=== PATIENT | male | born 1960 | race Caucasian/White ===

== ENCOUNTER 2022-07-30 16:09 | Outpatient (CLI) | payer BC, SELFPAY ==
[2022-07-30 21:30] LABS: Albumin* 5.1 g/dL (3.3-5.0); Chloride* 91 mmol/L (96-114); Potassium* 3.9 mmol/L (3.6-5.1); Sodium* 133 mmol/L (135-149)
[2022-07-30 21:32] LABS: Creatinine* 1.6 mg/dL (0.5-1.5); Estimated Glomerular Filt Rate 48 ml/min
[2022-07-30 21:33] LABS: Alanine Aminotransferase* 68 U/L (4-50); Alkaline Phosphatase* 85 U/L (40-150); Aspartate Amino Transferase* 88 U/L (12-35); Bilirubin Total* 0.6 mg/dL (0.1-1.5); Blood Urea Nitrogen* 23 mg/dL (7-30); Calcium* 10.2 mg/dL (8.4-10.6); Carbon Dioxide* 29 mmol/L (20-32); Glucose* 74 mg/dL (60-115); Total Protein* 8.3 g/dL (6.0-8.3)
== END 2022-07-30 16:10 | disposition home or self-care (01) ==
PROVIDERS: Visit Provider Dermatology
DX: L40.9 Psoriasis, unspecified (principal); I10 Essential (primary) hypertension
CPT/HCPCS: 80053; 86480

== ENCOUNTER 2022-08-27 18:17 | Emergency (ER) | payer BC, SELFPAY ==
[2022-08-27] VITALS (16 sets, daily range): BP systolic 99–130; BP diastolic 79–99; PULSE 76–110; RESP 18; TEMP 36.5; O2SAT 95–100; BMI 25.5
--- NOTE | 2022-08-27 18:37 | ED_ITS ---
HPI - General Adult General Time Seen by Provider: 18:38 Date Seen: 08/27/22 Chief complaint: Dizziness/Vertigo Stated complaint: Extreme Dizziness,Fainting,BP Up & Down Time Seen by Provider: 08/27/22 18:33 Source: patient and RN notes reviewed Mode of arrival: ambulatory Limitations: no limitations History of Present Illness HPI narrative: Patient is a 61-year-old male presenting tonight after 6:00 p.m. to the ER with sense of feeling dizzy/lightheaded. He got up to go to the bathroom early in the morning, had no issues. He got up for the morning, went in and got his shaving stuff out in the bathroom, went to the bathroom and then got into a very hot shower. He started to feel lightheaded and states he went down. He did this a 2nd time the shower. He got out of the shower proceeded to go about his day and has had no further syncopal events. He is on Xarelto. He states he has a history of atrial fibrillation but his problem list shows atrial flutter. He has not had cardioversion before, states he has not seen Cardiology before. They do not think he has had an echo before. He is on Xarelto and has not missed any doses, is on metoprolol XL 100 mg daily and then Dyazide daily. He states he has no feeling of the rhythm he is in. We discussed it is difficult to say if he was in this morning or not, we do not know how long he has been in it. He admits to alcohol use. His left ankle was reportedly injured in the shower but that was it. He states he did not hit his head, is not having any headaches, no visual changes. He has no new neck pain but does endorse chronic neck pain that is at baseline. He is not feeling short of breath. He states he has been walking on the left foot and ankle without any difficulty today. No fevers, no cough or cold symptoms. Related Data Home Medications Medication Instructions Recorded Confirmed metoprolol tartrate 100 mg tablet 100 mg PO QDAY 07/30/22 08/27/22 rivaroxaban 20 mg tablet (Xarelto) 20 mg PO QDAY 07/30/22 08/27/22 triamterene 37.5 1 tab PO QDAY 07/30/22 08/27/22 mg-hydrochlorothiazide 25 mg tablet ustekinumab 90 mg/mL subcutaneous 90 mg subcut Q12W 07/30/22 08/27/22 syringe (Stelara) Previous Rx's Medication Instructions Recorded ustekinumab 90 mg/mL subcutaneous 90 mg subcut Q12W #1 mL 07/30/22 syringe (Stelara) triamcinolone acetonide 0.1 % 1 applic topical BID #80 grams 08/04/22 topical cream metoprolol tartrate 50 mg tablet 50 mg PO DAILY #30 tabs 08/27/22 Allergies Allergy/AdvReac Type Severity Reaction Status Date / Time povidone Allergy Mild Rash Verified 08/27/22 18:27 Review of Systems Status of ROS: Reports: 10 or more systems reviewed and unremarkable except as noted in History and below [facility] Medical History (Updated 08/27/22 @ 20:18 by Natalee Rivera MD) GERD (gastroesophageal reflux disease) History of atrial flutter Hypertension Psoriasis Family History (Updated 05/26/22 @ 13:21 by Gail Patino) Brother Coronary artery disease Mother Coronary artery disease Social History Smoking Status: Never smoker Do you use any of these nicotine containing products: None Second hand tobacco smoke exposure: No How often do you have a drink containing alcohol: 4 or more times a week How many standard drinks containing alcohol do you have on a typical day: 3 or 4 AUDIT-C Alcohol total score: 5 Non-prescribed substance use: denies use Exam Const: Vital Signs, click to edit/add: Vital Signs - 24 hr 08/27/22 18:28 08/27/22 18:55 08/27/22 18:28 Temperature 97.7 F Pulse Rate 102 H Pulse Rate [Right Pulse Oximeter] 110 H Respiratory Rate 18 Blood Pressure 127/99 H Blood Pressure [Ri ght Upper Arm] 127/99 H Pulse Oximetry 98 96 99 Oxygen Delivery Me thod Room Air 08/27/22 18:29 08/27/22 18:30 08/27/22 18:32 Temperature Pulse Rate 76 84 Pulse Rate [Right Pulse Oximeter] Respiratory Rate Blood Pressure 130/97 H Blood Pressure [Ri ght Upper Arm] Pulse Oximetry 98 98 99 Oxygen Delivery Me thod 08/27/22 19:00 08/27/22 19:02 08/27/22 19:03 Temperature Pulse Rate 91 Pulse Rate [Right Pulse Oximeter] Respiratory Rate Blood Pressure 100/79 Blood Pressure [Ri ght Upper Arm] Pulse Oximetry 96 98 95 Oxygen Delivery Me thod 08/27/22 19:30 08/27/22 19:32 Temperature Pulse Rate 76 90 Pulse Rate [Right Pulse Oximeter] Respiratory Rate Blood Pressure 102/81 Blood Pressure [Ri ght Upper Arm] Pulse Oximetry 98 99 Oxygen Delivery Me thod Documenting provider has reviewed patient's vital signs: yes Common normals: no apparent distress, average body habitus, oriented x3, no limitations, healthy appearing, alert and well nourished General appearance: cooperative, comfortable and well kempt HENMT: Common normals: normocephalic, head/scalp atraumatic, hearing grossly normal bilaterally, external ears normal, external nose normal, nasal mucous membranes and turbinates normal, moist oral mucous membranes, oropharynx normal, dentition normal and gingiva normal Head and scalp: normocephalic and atraumatic Nose: external nose normal and nasal mucous membranes and turbinates normal External ear: external ears normal Eye: Common normals: PERRL, EOMs intact bilaterally, conjunctivae normal and no scleral icterus Conjunctiva: conjunctiva(e) normal Pupil: PERRL Neck & C-Spine: Common normals: full ROM, no lymphadenopathy, supple, no meningeal signs, no JVD and thyroid normal Thyroid: thyroid normal Chest: Common normals: inspection of chest normal Resp: Common normals: normal respiratory effort, no retractions, no use of accessory muscles and clear to auscultation bilaterally Auscultation: clear to auscultation bilaterally Cardio: Common normals: no JVD and no murmurs Rhythm: abnormal rhythm irregularly irregular GI: Common normals: Normal to inspection, nondistended, normoactive bowel sounds present, soft to palpation, non-tender, no hepatosplenomegaly and no masses Palpation: soft and no hepatosplenomegaly Extremity: Other: He has no lower extremity edema. On inspection of the left foot and ankle, there is some ecchymosis over the lateral mid foot area into the proximal metatarsals. He states he is not really tender. He does not wanted next tray. Malleoli of the ankle are nontender, there is no effusion over the ankle joint. Normal sensation, full range of motion of this extremity. Neuro: Common normals: oriented x3, CN's II-XII intact bilaterally, moves all extremities, no focal motor deficits, no sensory deficits noted and gait normal Sensorium/orientation: alert Meningeal signs: no meningeal signs Speech: speech normal Psych: Appearance: well kempt Course Course Hospital Course: EKG was obtained on arrival and he is in atrial fibrillation with intermittent RVR. He does go up into the lower 1 100s. Given that his fall was this morning and he is neurovascular intact, no neurologic symptoms, highly doubt any chance of any clinically significant intracranial brain bleed. He is presenting from something that happened this morning. We need to get appropriate labs. May try a dose IV beta-carlyn and see if he slows further. Will get a portable chest x-ray to ensure no congestive heart failure. He is not overtly symptomatic as far as showing us hemodynamic instability at this time. Reevaluation(s) Reevaluation #1: Reviewed normal workup, tolerated the 25 mg of metoprolol immediate release here. Heart rate is mostly 80s to 90s. He is asymptomatic. He states he came in because his daughter and made him come in [facility]. Did consider cardioversion but given that he has no idea when he really went into this, have no updated echo, really do not know if he would benefit from cardioversion. Think we need to have further information to make an educated informed decision on this procedure before doing it. We will work on his rate control with increase metoprolol, keep him on the Xarelto and have him follow-up as soon as possible with Dr. Escalante. Time: 20:20 Vital Signs Vital signs: Initial Vital Signs Temperature 97.7 F 08/27/22 18:28 Temperature Source Temporal Artery Scan 08/27/22 18:28 Pulse Rate 102 H 08/27/22 18:28 Respiratory Rate 18 08/27/22 18:28 Blood Pressure 127/99 H 08/27/22 18:28 Blood Pressure Mean 108 08/27/22 18:28 Blood Pressure Position Sitting 08/27/22 18:28 Pulse Oximetry 98 08/27/22 18:28 Oxygen Delivery Method 08/27/22 18:28 Vital Signs Temperature 97.7 F 08/27/22 18:28 Pulse Rate 102 H 08/27/22 18:28 Respiratory Rate 18 08/27/22 18:28 Blood Pressure 127/99 H 08/27/22 18:28 Pulse Oximetry 98 08/27/22 18:28 Oxygen Delivery Method 08/27/22 18:28 Temperature 97.7 F 08/27/22 18:28 Pulse Rate 90 08/27/22 19:32 Respiratory Rate 18 08/27/22 18:28 Blood Pressure 102/81 08/27/22 19:32 Pulse Oximetry 99 08/27/22 19:32 Oxygen Delivery Method 08/27/22 18:28 Medical Decision Making Lab Data Lab results reviewed: Yes I reviewed the patient's lab results Labs: Lab Results 08/27/22 08/27/22 08/27/22 Range/Units 18:46 18:55 18:55 WBC 9.24 (4.50-11.00) K/uL RBC 4.59 (4.30-5.90) m/uL Hgb 15.3 (13.5-17.5) gm/dL Hct 43.9 (37.0-53.0) % MCV 96 (80-100) fL MCH 33 (26-34) pg MCHC 35 (32-36) gm/dL RDW Coeff of Jammie 12.9 (11.5-15.5) % Plt Count 249 (140-440) K/uL Neut % (Auto) 73.4 H (42.0-72.0) % Lymph % (Auto) 15.0 L (20-44) % [place] % (Auto) 10.5 (0.0-11.0) % Eos % (Auto) 0.5 (0.0-7.0) % Baso % (Auto) 0.4 (0.0-3.0) % Neut # (Auto) 6.80 (1.7-7.0) K/uL Lymph # (Auto) 1.40 (0.90-2.90) K/uL [place] # (Auto) 1.00 H (0.00-0.90) K/UL Eos # (Auto) 0.05 (0.00-0.50) K/uL Baso # (Auto) 0.04 (0.00-0.30) K/uL Abs Immat Gran (auto) 0.02 (0.00-0.30) K/uL Imm/Tot Granulo (auto) 0.2 % Sodium 131 L (135-149) mmol/L Potassium 3.9 (3.6-5.1) mmol/L Chloride 94 L (96-114) mmol/L Carbon Dioxide 23 (20-32) mmol/L BUN 31 H (7-30) mg/dL Creatinine 1.4 (0.5-1.5) mg/dL Estimated Creat Clear 68.95 Estimated GFR 57 ml/min Glucose 124 H (60-115) mg/dL Calcium 10.3 (8.4-10.6) mg/dL Magnesium 2.0 (1.5-2.6) mg/dL Total Bilirubin 1.2 (0.1-1.5) mg/dL AST 70 H (12-35) U/L ALT 86 H (4-50) U/L Alkaline Phosphatase 60 (40-150) U/L NT-Pro-B Natriuret Pep 2510 H (0-125) PG/mL Total Protein 8.2 (6.0-8.3) g/dL Albumin 4.9 (3.3-5.0) g/dL Ethyl Alcohol < 0.01 L (0.01-0.03) % POC Troponin I 0.00 L (0.01-0.04) ng/ml ECG Data Attestation: I personally reviewed and interpreted this ECG as follows: (Atrial fibrillation, 99 beats per minute, ST segment depression that is flat V2 through V6 but certainly not over 1 mm. QT corrected 449 milliseconds.) Prior ECG tracings: not available for review Discharge Plan Discharge Clinical Impression: Atrial fibrillation with rapid ventricular response Patient Disposition: Home, Self-Care Condition: Stable Instructions: A-fib (Atrial Fibrillation) (ED) Additional Instructions: Recommend minimization of alcohol. Will add in another 50 mg of metoprolol XL for a total dose of 150 mg daily. Stay on the Xarelto. Need to follow up with Dr. Escalante in clinic as soon as possible. Would recommend outpatient echo if 1 has not been done recently. If you are becoming too dizzy, lightheaded, too low blood pressure from the increased metoprolol, heart rate is consistently staying over 110, developed chest pain/shortness of breath, edema, do need to be re-evaluated. Activity Level: Activity as Tolerated Prescriptions: New metoprolol tartrate 50 mg tablet 50 mg PO DAILY Qty: 30 0RF Rx Instructions: add to 100mg for total of 150mg daily No Action metoprolol tartrate 100 mg tablet 100 mg PO QDAY Xarelto 20 mg tablet 20 mg PO QDAY Rx Instructions: must administer with evening meal triamterene-hydrochlorothiazid 37.5-25 mg tablet 1 tab PO QDAY Stelara 90 mg/mL syringe 90 mg subcut Q12W Stelara 90 mg/mL syringe 90 mg subcut Q12W Qty: 1 3RF triamcinolone acetonide 0.1 % cream 1 applic topical BID Qty: 80 0RF Follow Up/Referrals: Provider,Not a Local [Primary Care Provider] - Stand Alone Forms: [employer] Info Instructions
--- NOTE | 2022-08-27 18:45 | CRLHL7_ITS ---
For Patients: As a result of the Cures Act, medical imaging exams and procedure reports are released immediately into your electronic medical record. You may view this report before your referring provider. If you have questions, please contact your health care provider. INDICATION: AFib, dizziness. TECHNIQUE: Chest 1 views. COMPARISON: Chest x-ray from 01/11/2017. FINDINGS: Lungs: Clear lungs. No consolidation. Pleura: No pleural effusion or pneumothorax. Heart and Mediastinum: The cardiomediastinal silhouette is normal. The vessels are unremarkable. Bones: Unremarkable. IMPRESSION: No acute cardiopulmonary disease. Dictated by Donnell Manzo MD @ 08/27/2022 8:24:27 PM (Electronically Signed)
[2022-08-27 19:08] LABS: Basophils Absolute Auto 0.04 K/uL (0.00-0.30); Basophils Percent Auto 0.4 % (0.0-3.0); Eosinophils Absolute Auto 0.05 K/uL (0.00-0.50); Eosinophils Percent Auto 0.5 % (0.0-7.0); Hematocrit 43.9 % (37.0-53.0); Hemoglobin* 15.3 gm/dL (13.5-17.5); Immature Granulocytes Abs Auto 0.02 K/uL (0.00-0.30); Immature Granulocytes Pct Auto 0.2 %; Mean Corpuscular HGB Conc 35 gm/dL (32-36); Mean Corpuscular Hemoglobin 33 pg (26-34); Mean Corpuscular Volume 96 fL (80-100); Monocytes Percent Auto 10.5 % (0.0-11.0); Neutrophils Percent Auto 73.4 % (42.0-72.0); Platelet Count* 249 K/uL (140-440); RDW Coefficient of Variation % 12.9 % (11.5-15.5); Red Blood Count 4.59 m/uL (4.30-5.90); White Blood Count* 9.24 K/uL (4.50-11.00)
[2022-08-27 19:10] LABS: Slide Review Reflex No
[2022-08-27 19:25] LABS: Albumin* 4.9 g/dL (3.3-5.0)
[2022-08-27 19:26] LABS: Chloride* 94 mmol/L (96-114); Sodium* 131 mmol/L (135-149)
[2022-08-27 19:27] LABS: Potassium* 3.9 mmol/L (3.6-5.1)
[2022-08-27 19:28] LABS: Bilirubin Total* 1.2 mg/dL (0.1-1.5); Creatinine* 1.4 mg/dL (0.5-1.5); Est. Creatinine Clearance* 68.95; Estimated Glomerular Filt Rate 57 ml/min
[2022-08-27 19:29] LABS: Alanine Aminotransferase* 86 U/L (4-50); Alkaline Phosphatase* 60 U/L (40-150); Aspartate Amino Transferase* 70 U/L (12-35); Blood Urea Nitrogen* 31 mg/dL (7-30); Calcium* 10.3 mg/dL (8.4-10.6); Carbon Dioxide* 23 mmol/L (20-32); Glucose* 124 mg/dL (60-115); Total Protein* 8.2 g/dL (6.0-8.3)
[2022-08-27 19:30] LABS: Ethanol* < 0.01 % (0.01-0.03)
[2022-08-27] MEDS: METOPROLOL TARTRATE 25 MG TABLET PO (19:33)
[2022-08-27 19:38] LABS: NT Pro B Type NatriureticPept* 2510 PG/mL (0-125)
--- NOTE | 2022-08-28 06:47 | ED.NURSE ---
pt and called, concerned about Pro BNP levels seen on labs. Ok to speak to per pt. Pt still weak. Dr Escalante is primary. Spoke with Dr aGn, who is the ER physician on at this time. Rec that pt call for an appointment when clinic opens and follow up with him today. agreeable to plan.
== END 2022-08-27 20:48 | disposition home or self-care (01) ==
PROVIDERS: Emergency Provider Family Medicine; PCP Family Medicine
DX: I48.20 Chronic atrial fibrillation, unspecified (principal)
CPT/HCPCS: 36415; 71045; 80053; 82077; 83735; 83880; 85025; 93005; 94761; 99284; A9270

== ENCOUNTER 2022-09-07 15:46 | Outpatient (CLI) | payer BC, SELFPAY | END 2022-09-07 15:47 | disposition home or self-care (01) | LOC: RAD 15:46 | PROVIDERS: PCP Family Medicine; Visit Provider Family Medicine | DX: I48.20 Chronic atrial fibrillation, unspecified (principal) | CPT/HCPCS: 93306 ==

== ENCOUNTER 2023-04-30 15:09 | Outpatient (CLI) | payer OTHER, SELFPAY | END 2023-04-30 15:10 | disposition home or self-care (01) | PROVIDERS: PCP Family Medicine; Visit Provider Family Medicine | DX: I10 Essential (primary) hypertension (principal); L40.9 Psoriasis, unspecified; Z12.5 Encounter for screening for malignant neoplasm of prostate | CPT/HCPCS: 80048; 80061; 80076; 84153 ==

== ENCOUNTER 2024-05-26 08:51 | Outpatient (CLI) | payer OTHER, SELFPAY | END 2024-05-26 08:52 | disposition home or self-care (01) | PROVIDERS: PCP Family Medicine; Visit Provider Family Medicine | DX: I10 Essential (primary) hypertension (principal); N40.0 Benign prostatic hyperplasia without lower urinary tract symptoms; Z12.5 Encounter for screening for malignant neoplasm of prostate; Z13.220 Encounter for screening for lipoid disorders | CPT/HCPCS: 80048; 80076; 85025; G0103 ==

== ENCOUNTER 2025-07-24 16:59 | Outpatient (CLI) | payer OTHER, SELFPAY | END 2025-07-24 17:00 | disposition home or self-care (01) | PROVIDERS: PCP Family Medicine; Visit Provider Family Medicine | DX: I10 Essential (primary) hypertension (principal); Z12.5 Encounter for screening for malignant neoplasm of prostate | CPT/HCPCS: 80061; 84460; 85025; G0103 ==

== ENCOUNTER 2025-09-20 17:35 | Emergency (ER) | payer OTHER, SELFPAY ==
[2025-09-20 17:41] VITALS: BP 139/95; PULSE 83; RESP 18; TEMP 36.5; O2SAT 98; BMI 25.5
--- NOTE | 2025-09-20 17:52 | ED_ITS ---
History of Present Illness General Date Seen: 09/20/25 Chief Complaint: Epistaxis/Nosebleed Stated Complaint: nose bleeds- on blood thinners Time Seen by Provider: 09/20/25 17:52 Source: patient, family and RN notes reviewed Mode of arrival: ambulatory Limitations: no limitations History of Present Illness HPI Narrative: Landen is a very pleasant 64-year-old gentleman with a history of atrial fibrillation currently on Xarelto who unfortunately has had 2 nosebleeds in the last 2 days. Today his nose bleed was quite extended any does describe large clots. It lasted over 3 hours. However, upon arrival at the hospital as has since stopped. He denies any recent cough cold congestion or fever. He does note persistent rhinitis ever since he was put on medication for AFib. He does frequently his nose. Notes no trauma to his nose otherwise. Related Data Previous Rx's ?Medication ?Instructions ?Recorded ustekinumab-aauz 45 mg/0.5 mL 45 mg (0.5 mL) subcut Q1 2W #0.5 mL 06/22/25 subcutaneous syringe (Otulfi) celecoxib 200 mg capsule (Celebrex) 200 mg PO BID PRN pain #90 caps 07/24/25 metoprolol tartrate 100 mg tablet 100 mg PO BID #180 t abs 07/24/25 omeprazole 40 mg capsule,delayed 40 mg PO DAILY #90 ca ps 07/24/25 release rivaroxaban 20 mg tablet (Xarelto) 20 mg PO QDAY #90 t abs 07/24/25 triamterene 37.5 1 tab PO QDAY #90 tabs 07/24 mg-hydrochlorothiazide 25 mg tablet Allergies Allergy/AdvReac Type Severity Reaction Status Date / Time povidone Allergy Mild Rash Verified 07/24/25 16:35 Review of Systems Status of ROS: Reports: 6 or more systems reviewed and unremarkable except as noted in History and below [facility] Medical History Varicose veins of both lower extremities ?I83.93 - Asymptomatic varicose veins of bilateral lower extremities (ICD-10) Primary hypertension ?I10 - Essential (primary) hypertension (ICD-10) Atrial fibrillation ?I48.91 - Unspecified atrial fibrillation (ICD-10) BPH (benign prostatic hyperplasia) ?N40.0 - Benign prostatic hyperplasia without lower urinary tract symptoms (I CD-10) GERD (gastroesophageal reflux disease) ?K21.9 - Gastro-esophageal reflux disease without esophagitis (ICD-10) History of atrial flutter ?Z86.79 - Personal history of other diseases of the circulatory system (ICD- 10) Psoriasis ?L40.9 - Psoriasis, unspecified (ICD-10) Family History Brother Coronary artery disease Mother Coronary artery disease Social History Narrative: What is your current living situation?: I presently have a place to live Problems where you live: no known problems In the past 12 months, utilities in danger of being shut off: no In past 12 months, lack of transportation kept you from medical appts, meetings, work, or getting things needed for daily living: no In the past 12 mos, have been you worried that your food would run out before you had money to buy more?: never true In the past 12 mos, the food you bought just didn't last and you didn't have money to buy more?: never true Smoking Status: Never smoker Do you use any of these nicotine containing products: None Second hand tobacco smoke exposure: No How often do you have a drink containing alcohol: 4 or more times a week How many standard drinks containing alcohol do you have on a typical day: 3 or 4 AUDIT-C Alcohol total score: 5 Non-prescribed substance use: denies use How often does anyone, including family, friends and others, physically hurt you : never How often does anyone, including family, friends and others, insult or talk down to you: never How often does anyone, including family, friends and others, threaten you with harm: never How often does anyone, including family, friends and others, scream or curse at you: never Exam Narrative: Exam Narrative: Patient is to be alert and oriented. Good color. Examination in the nose shows excoriation in the superior 3rd nasal septum. There are a few punctate areas of fresh blood but no active bleeding. Procedure: I do speak to patient about the use of silver nitrate sticks and he is in agreement with this. Two adjacent areas are cauterized using silver nitrate. Patient tolerated procedure well. Const: Vital Signs, click to edit/add: Vital Signs - 24 hr 09/20/25 17:41 Temperature 97.7 F Pulse Rate [Right Pulse Oximeter] 83 Respiratory Rate 18 Blood Pressure [Ri ght Upper Arm] 139/95 H Pulse Oximetry 98 Oxygen Delivery Me thod Room Air Documenting provider has reviewed patient's vital signs: yes Course Vital Signs Vital signs: Initial Vital Signs Temperature 97.7 F 09/20/25 17:41 Temperature Source Temporal Artery Scan 09/20/25 17:41 Pulse Rate 83 09/20/25 17:41 Respiratory Rate 18 09/20/25 17:41 Blood Pressure 139/95 H 09/20/25 17:41 Blood Pressure Mean 109 H 09/20/25 17:41 Blood Pressure Position Sitting 09/20/25 17:41 Pulse Oximetry 98 09/20/25 17:41 Oxygen Delivery Method Room Air 09/20/25 17:41 Vital Signs Temperature 97.7 F 09/20/25 17:41 Pulse Rate 83 09/20/25 17:41 Respiratory Rate 18 09/20/25 17:41 Blood Pressure 139/95 H 09/20/25 17:41 Pulse Oximetry 98 09/20/25 17:41 Oxygen Delivery Method Room Air 09/20/25 17:41 Temperature 97.7 F 09/20/25 17:41 Pulse Rate 83 09/20/25 17:41 Respiratory Rate 18 09/20/25 17:41 Blood Pressure 139/95 H 09/20/25 17:41 Pulse Oximetry 98 09/20/25 17:41 Oxygen Delivery Method Room Air 09/20/25 17:41 MDM - Epistaxis MDM Narrative Medical decision making narrative: 1. Epistaxis-patient noted to have normal vital signs, no evidence of tachycardia. Patient is currently on Xarelto. Silver nitrate was used to cauterize areas with fresh blood in the nose on the superior aspect of the nasal septum. This was in the mid to distal area. Patient tolerated procedure well. Patient departed home. Would ask that he use a thin layer bacitracin or Vaseline or along the outside area of the nose and try to stay way from very dry areas. Best of his ability he will need to limit wiping his nose. If he has additional bleeding that stops he will need to see our ENT for further evaluation. If the bleeding will not staff he will need to return to the emergency room for further evaluation. 2. Disposition-patient has a medical staff in his family both his and daughter who are loving and supportive in are present here today. They are anxious to go as they have appointments tonight. They all seem to understand the instructions and I did not feel that it was necessary to delay their departure by waiting for written instructions. Medical Records Attestation: I reviewed the patient's medical records. Discharge Plan Discharge Prescriptions: No Action Xarelto 20 mg tablet 20 mg PO QDAY Qty: 90 3RF Rx Instructions: must administer with evening meal omeprazole 40 mg capsule,delayed release(DR/EC) 40 mg PO DAILY Qty: 90 3RF triamterene-hydrochlorothiazid 37.5-25 mg tablet 1 tab PO QDAY Qty: 90 3RF celecoxib [Celebrex] 200 mg capsule 200 mg PO BID PRN (Reason: pain) Qty: 90 1RF metoprolol tartrate 100 mg tablet 100 mg PO BID Qty: 180 3RF Otulfi 45 mg/0.5 mL syringe 45 mg subcut Q12W Qty: 0.5 1RF Follow Up/Referrals: Mak Escalante MD [Primary Care Provider, Family Practice]
== END 2025-09-20 18:35 | disposition home or self-care (01) ==
LOC: ED 18:20
PROVIDERS: Emergency Provider Family Medicine; PCP Family Medicine
DX: R04.0 Epistaxis (principal); Z79.01 Long term (current) use of anticoagulants
CPT/HCPCS: 30901; 99283; 99284